=== PATIENT | male | born 1965 | race Caucasian/White ===

== ENCOUNTER → 2020-06-06 09:55 | Outpatient (BNVA) | payer OTHER, SELFPAY | PROVIDERS: PCP Internal Medicine; Visit Provider Physician Assistant | DX: S33.9XXA Sprain of unspecified parts of lumbar spine and pelvis, initial encounter (principal); X58.XXXA Exposure to other specified factors, initial encounter | CPT/HCPCS: 72110; 99203 ==

== ENCOUNTER → 2020-06-11 11:13 | Outpatient (BNVA) | payer OTHER, SELFPAY | PROVIDERS: PCP Internal Medicine; Visit Provider Physician Assistant | DX: S39.012A Strain of muscle, fascia and tendon of lower back, initial encounter (principal); X58.XXXA Exposure to other specified factors, initial encounter; M54.16 Radiculopathy, lumbar region | CPT/HCPCS: 99213 ==

== ENCOUNTER 2020-06-21 11:00 | Outpatient (RCR) | payer OTHER, SELFPAY ==
--- NOTE | 2020-06-12 10:48 | MHC.PT.EP ---
[facility] [place] [facility] [place] [facility] [place] [facility] [address] Vance Marcus [address] [phone] F: [phone] F: [phone] F: [phone] F: [phone] Physical Therapy Plan of Care Date of Evaluation: 06/12/20 Date of Surgery: none Diagnosis: Lumbar strain with radiculopathy Assessment: Pt is a 55 y/o M referred to PT from work connection with lumbar strain with R radiculopathy. Chief complaint of low back pain with pain radiating into (R) posterior leg to ankle. Pt reports that pain began 06/06/20 following lifting heavy barrel at work; pt went to work connection following day due to worsening of pain. PMH is significant for [place] in 2019 with pt completing cardiac rehab following. Pt presents today with pain, gluteal weakness, reduced lumbar ROM, (+) special testing for SI and neutral tension involvement, and gait/postural abnormalities. Additionally pt presents with pelvic/SIJ asymmetries, sensation changes and pain across (R) calf and posterior thigh with normal DTRs. Pt muscular weakness is likely related to current pain levels. Pt (+) muscle length testing likely related to ongoing neural tension and pain. Pt symptoms are consistent with acute lumbar derangement with SI dusfunction resulting in pain at work, walking, standing, sleeping, and lifting. Pt will benefit from skilled PT 2x/week for 6 weeks to improve pain levels, strengthen hip muscular, and improve lumbar ROM to aid in return to work, return to running, walking, and lifting objects. Frequency and Duration: The patient will be seen 2x/week for 6 weeks Short Term Goals: 3 Weeks: 1) Pt will be independent in HEP to maintain gains between sessions 2) Pt will be able to demonstrate proper lifting technique to aid in work 3 ) Pt pain will decrease 50% to aid in return to light duty [employer] Goals: 6 Weeks: 1) Pt will be able to tolerate 2 mi walking to aid in return to running 2) Pt will be able to tolerate 1 hour of standing to aid in return to work 3) Pt will be able to lift 50# with correct lifting technique to aid in return to work. Treatment Plan: Modalities to reduce pain, spasms and effusion. Manual therapy to restore motion and function. Therapeutic exercise to improve strength and flexibility. Neuromuscular re-education for posture and balance. Therapeutic activities to return to functional activities of daily living. Electronically signed by: Elizabeth Barrow PT Please sign and return to therapist. Thank you for your referral.
--- NOTE | 2020-08-08 18:03 | MHC.PT.DC ---
[facility] [place] Office [place] Office [place] [facility] [address] Vance Marcus [address] [phone] F: [phone] F: [phone] F: [phone] F: [phone] Physical Therapy Discharge Report Diagnosis: Lumbar strain with radiculopathy Date of Surgery: none Date of Evaluation: 06/12/20 Date of Discharge: 08/08/20 Treatments to Date: 4 Cancellations to Date: 0 No Shows to Date: 0 Discharge Status: Discharge Summary: Pt called to change appointment times due to RTW but then did not reschedule. He is d.c at this time. At time of last visit Initiated with flexion-based exercises and he has no LE or back pain with flexion, however his sx return immediately upon standing into the R LE to the ankle. Assessed SI and performed MET for extended L sacrum with no change in sx. We then initiated extension-based progression with pt prone over 2 pillows and we were able to progress to prone lying with pain centralised to low back only. Trial of MK, however instantly peripheralized to his R calf so returned to prone lying. Upone standing, his pain returned to his R LE. Educated pt on precautions of prone lying exercise and when to stop if peripheralization. Also discussed different treatment strategies such as trial of mechanical traction, IFC, and stabilization. Sx consistent with lumbar derangement and his continues to have fluctuating sx ?due to inflammation and nerve irritation. Pt left with same pain he arrived with. Electronically signed by: Elizabeth Barrow PT Please sign and return to therapist. Thank you for your referral.
== END 2020-08-08 18:03 | disposition home or self-care (01) ==
LOC: HO.PT 11:00
PROVIDERS: PCP Internal Medicine; Visit Provider Physician Assistant
DX: S39.012D Strain of muscle, fascia and tendon of lower back, subsequent encounter (principal)
CPT/HCPCS: 97110; 97140; 97162

== ENCOUNTER → 2020-06-25 09:01 | Outpatient (BNVA) | payer OTHER, SELFPAY | PROVIDERS: PCP Internal Medicine; Visit Provider Physician Assistant | DX: S39.012A Strain of muscle, fascia and tendon of lower back, initial encounter (principal); X58.XXXA Exposure to other specified factors, initial encounter; M54.16 Radiculopathy, lumbar region | CPT/HCPCS: 99213 ==

== ENCOUNTER 2020-07-02 07:52 | Outpatient (REF) | payer OTHER, SELFPAY ==
--- NOTE | ~2020-07-02 | MR_ITS ---
EXAMINATION: MR LUMBAR SPINE WITHOUT CONTRAST CLINICAL INFORMATION: Lifting injury. Right lower extremity radicular pain COMPARISON: Lumbar spine x-ray 06/06/2020. TECHNIQUE: MRI of the lumbar spine was obtained using routine sequences without contrast. FINDINGS: There is normal lumbar lordosis. The vertebral heights and alignment is normal. The disc heights and disc signal is preserved except at the L5-S1 disc level. There is a rudimentary disc at the S1-S2 disc level. At L1-L2, L2-L3 and L3-L4 disc levels there is no significant disc bulge, herniation or spinal stenosis. The neural foramina are patent. At L4-L5 disc level there is a broad base diffuse bulge flattening of the ventral thecal sac. The neural foramina are moderately narrowed bilaterally. At L5-S1 disc level there is a broad based disc herniation more centralized with inferior migration. There is moderate bilateral narrowing of neural foramina. In addition, there is mild bilateral facet joint arthropathy, greater on the left. No spinal canal stenosis seen. The bone marrow signal, intraspinal signal and paravertebral soft tissues are normal. Conus medullaris terminates at L1 and appears normal in morphology. MR/MR lumbar spine wo con IMPRESSION: 1. Broad based diffuse bulge L4-L5 disc level with bilateral moderate canal stenosis. 2. Broad base diffuse bulge with a central disc herniations and slight inferior migration but no spinal canal stenosis. There is bilateral moderate narrowing of neural foramina greater on the left with bilateral facet joint hypertrophy slightly prominent on the left.
== END 2020-07-02 07:53 | disposition home or self-care (01) ==
LOC: HO.MRI 07:52
PROVIDERS: Visit Provider Internal Medicine
DX: M79.661 Pain in right lower leg (principal); M54.16 Radiculopathy, lumbar region
CPT/HCPCS: 72148

== ENCOUNTER → 2020-07-09 09:48 | Outpatient (BNVA) | payer OTHER, SELFPAY | PROVIDERS: Visit Provider Physician Assistant | DX: S39.012D Strain of muscle, fascia and tendon of lower back, subsequent encounter (principal); X58.XXXD Exposure to other specified factors, subsequent encounter | CPT/HCPCS: 99213 ==

== ENCOUNTER → 2021-09-05 13:46 | Outpatient (BNVA) | payer OTHER, SELFPAY | PROVIDERS: Visit Provider Physician Assistant | DX: M75.22 Bicipital tendinitis, left shoulder (principal) | CPT/HCPCS: 99203 ==

== ENCOUNTER → 2021-09-20 09:46 | Outpatient (BNVA) | payer OTHER, SELFPAY | PROVIDERS: Visit Provider Physician Assistant | DX: M75.22 Bicipital tendinitis, left shoulder (principal) | CPT/HCPCS: 99213 ==

== ENCOUNTER 2021-10-15 07:15 | Outpatient (REF) | payer OTHER, SELFPAY ==
--- NOTE | ~2021-10-15 | MR_ITS ---
EXAMINATION: MR ELBOW WITHOUT CONTRAST, LEFT CLINICAL INFORMATION: Lifting injury on 08/02/2021. Anterior left elbow pain with twisting. Evaluate for a biceps tendon tear. COMPARISON: None TECHNIQUE: Multisequence MR imaging of the left elbow was obtained without contrast on a high-field strength scanner. FINDINGS: Ulnar collateral ligament: Intact. Common flexor tendon: Minimal increased T2 signal associated with the common flexor tendon consistent with minimal tendinosis. Radial collateral ligament: Attenuation to the proximal aspect of the radial collateral ligament consistent with partial tearing. Common extensor tendon: Fluid signal along the undersurface of the common extensor tendon consistent with high-grade undersurface partial tearing. This measures approximately 1.1 x 1.2 cm (AP x CC). Biceps/triceps tendon: Diffuse thickening of the distal biceps tendon measuring 2.2 cm in length with abnormal intrasubstance signal and irregularity, consistent with tendinosis and longitudinal partial tearing. No full-thickness transverse tendon tear. Mild adjacent soft tissue edema. Mild fluid within the bicipitoradial bursa consistent with mild bursitis. Articular cartilage/bone: Intact. Ulnar nerve: Intact. Joint fluid/soft tissues: Within normal limits. MR/MR elbow LT wo con IMPRESSION: 1. Distal biceps tendinosis with irregular longitudinal partial tearing measuring 2.2 cm in craniocaudal dimension. Mild adjacent soft tissue edema as well as mild bicipitoradial bursitis. 2. High-grade undersurface partial tearing of the common extensor tendon. Adjacent partial tearing of the proximal radial collateral ligament. 3. Minimal common flexor tendinosis.
== END 2021-10-15 07:16 | disposition home or self-care (01) ==
LOC: HO.MRI 07:15
PROVIDERS: Visit Provider Internal Medicine
DX: M25.522 Pain in left elbow (principal); X50.0XXA Overexertion from strenuous movement or load, initial encounter; Y93.9 Activity, unspecified; Y92.9 Unspecified place or not applicable; Y99.9 Unspecified external cause status
CPT/HCPCS: 73221

== ENCOUNTER → 2021-10-18 09:17 | Outpatient (BNVA) | payer OTHER, SELFPAY | PROVIDERS: Visit Provider Physician Assistant | DX: S39.012D Strain of muscle, fascia and tendon of lower back, subsequent encounter (principal); X58.XXXD Exposure to other specified factors, subsequent encounter | CPT/HCPCS: 99214 ==

== ENCOUNTER → 2023-04-16 09:23 | Outpatient (BNVA) | payer SELFPAY | PROVIDERS: Visit Provider Physician Assistant Medical | DX: Z02.79 Encounter for issue of other medical certificate (principal) ==